=== PATIENT | female | born 1960 | race Asian ===

== ENCOUNTER 2020-08-06 10:12 | Emergency (ER) | payer OTHER ==
[~2020-08-06] VITALS: Ht 165.1 cm; Wt 63.5 kg
[2020-08-06 10:16] VITALS: BP 118/91
--- NOTE | 2020-08-06 10:29 | NUR ---
60YO F C/O LEFT ANKLE PAIN S/P FALL X YESTERDAY. PER PT, SHE WAS HIKING WHEN SHE SLIPPED AND TWISTED HER LEFT ANKLE, PAIN 7/10. UPON ASSESSMENT, VSS. AOX4. WITH BRUISING AND SWELLING ON LATERAL ASPECT OF LEFT ANKLE. ABLE TO WIGGLE TOES. CAP REFILL <4SECS ON TOES OF BILATERAL FEET. PT POSITIONED COMFORTABLY IN BED. ERMD MADE AWARE OF PT STATUS. PMH: DENIES BREANNEA
--- NOTE | 2020-08-06 10:29 | NUR ---
Patient taken to x-ray via wheelchair by tech.
--- NOTE | 2020-08-06 10:47 | NUR ---
Dr. Wise is evaluating the patient at bedside.
[2020-08-06 11:03] VITALS: BP 118/91
--- NOTE | 2020-08-06 11:04 | NUR ---
Patient discharged with v/s stable. Written and verbal after care instructions given and explained. Patient alert, oriented and verbalized understanding of instructions. Ambulatory. All questions addressed prior to discharge. ID band removed. Patient advised to follow up with PMD. Rx of ibuprofen given. Patient educated on indication of medication including possible reaction and side effects. Opportunity to ask questions provided and answered.
--- NOTE | 2020-08-06 11:04 | NUR ---
APPLIED ANNETTE WRAP TO LEFT ANKLE WITHOUT ANY ISSUES
== END 2020-08-06 11:04 | disposition home or self-care (01) ==
LOC: MED 10:12
DX: S82.492A Other fracture of shaft of left fibula, initial encounter for closed fracture (principal); W18.39XA Other fall on same level, initial encounter; Y93.89 Activity, other specified; Y92.89 Other specified places as the place of occurrence of the external cause; Y99.8 Other external cause status
CPT/HCPCS: 73610; 99283

== ENCOUNTER 2020-08-20 09:21 | Emergency (ER) | payer OTHER ==
[~2020-08-20] VITALS: Ht 167.6 cm; Wt 63.5 kg
[2020-08-20 09:22] VITALS: BP 151/96
--- NOTE | 2020-08-20 09:24 | NUR ---
pt w/c assisted to bed 11.
--- NOTE | 2020-08-20 09:43 | NUR ---
Patient being evaluated by DR MOON at bedside.
--- NOTE | 2020-08-20 09:44 | NUR ---
60 y/o female BIB c/o left ankle redness, swelling and blisters and bruises x 1 week. pt fell 3 weeks ago and fractured it and had it wrapped with lali bandage. pt was using cortisone cream and calamine lotion and ankle became red with blisters. pt denies pain but describs it as "hot" and "itchy". On assessment, skin is warm, < 3 seconds cap refill, bilateral equal +2 pedal pulses with full ROM. Pt is A&O x4, VSS, with even and unlabored respirations. pt is laying in bed with ankle elevated with pillow. bed is in lowest position, brakes locked, x1 siderail up. pt speaks mandarin, translater was used along with . pmh: denies nka
--- NOTE | 2020-08-20 09:55 | NUR ---
lab at pt bedside
[2020-08-20] MEDS ORDERED: KETOROLAC 30 MG/ML VIAL IM SCH (10:00)
--- NOTE | 2020-08-20 10:05 | NUR ---
breed to wean production technician at bedside.
[2020-08-20 10:06] LABS: BASOPHILS # (AUTO) 0.1 K/uL (0.00-0.22); EOSINOPHILS # (AUTO) 0.6 K/uL (0-0.4); EOSINOPHILS % (AUTO) 9.4 % (0.0-4.0); HEMATOCRIT 38.2 % (36-48); HEMOGLOBIN 12.5 g/dL (12.0-16.0); LYMPHOCYTES # (AUTO) 1.3 K/uL (2.5-16.5); LYMPHOCYTES % (AUTO) 21.5 % (20.5-51.1); MEAN CORPUSCULAR HEMOGLOBIN 29 pg (27-31); MEAN CORPUSCULAR HGB CONC 33 g/dL (33-37); MEAN CORPUSCULAR VOLUME 87.6 fL (80-94); MONOCYTES # (AUTO) 0.4 K/uL (0.8-1.0); MONOCYTES % (AUTO) 5.8 % (1.7-9.3); NEUTROPHILS # (AUTO) 3.9 K/uL (1.8-7.7); NEUTROPHILS % (AUTO) 62.3 % (42.2-75.2); PLATELET COUNT (AUTO) 218 K/uL (140-450); RED BLOOD CELL COUNT(AUTO) 4.36 MIL/uL (4.20-5.40); RED CELL DISTRIBUTION WIDTH 13.2 % (11.6-13.7); WHITE BLOOD COUNT (AUTO) 6.2 K/uL (4.8-10.8)
[2020-08-20 10:24] LABS: ALBUMIN 3.8 g/dL (3.4-5.0); ANION GAP 11.7 (8-16); CARBON DIOXIDE 26.3 mmol/L (21-32); CREATININE 0.6 mg/dL (0.6-1.3); TOTAL BILIRUBIN 0.8 mg/dL (0.0-1.0)
--- NOTE | 2020-08-20 11:30 | NUR ---
PT RESTING IN BED. EVEN AND UNLABORED RESPIRATIONS NOTED. BED IN LOWEST POSITION, BRAKES LOCKED, X1 SIDERAIL UP. WILL CONTINUE TOMONITOR
--- NOTE | 2020-08-20 13:38 | NUR ---
[employer] TRANSLATER PHONE USED FOR MANDARIN. INTREPTER NAME ANNALISAROGELIOYUMIKO ID [id number]
[2020-08-20 13:50] VITALS: BP 151/96
--- NOTE | 2020-08-20 13:50 | NUR ---
Patient discharged with v/s stable. Written and verbal after care instructions given and explained. Patient alert, oriented and verbalized understanding of instructions. Ambulatory with steady gait. All questions addressed prior to discharge. ID band removed. Patient advised to follow up with PMD. Rx of Cephalexin 500mg and Diphenhydramine given. Patient educated on indication of medication including possible reaction and side effects. Opportunity to ask questions provided and answered.
== END 2020-08-20 13:50 | disposition home or self-care (01) ==
LOC: MED 09:21
DX: L25.9 Unspecified contact dermatitis, unspecified cause (principal); L03.116 Cellulitis of left lower limb
CPT/HCPCS: 36415; 73590; 73610; 80053; 85025; 86140; 96372; 99284; J1885; Q0163